=== PATIENT | female | born 1990 | race Caucasian/White ===

== ENCOUNTER 2021-04-24 03:12 | Outpatient (CLI) | payer BC, SELFPAY ==
[2021-04-25 08:05] LABS: COVID-19 RT-PCR UVMMC Result Positive (Negative)
== END 2021-04-24 03:13 | disposition home or self-care (01) ==
LOC: LBO 03:12
PROVIDERS: PCP Nurse Practitioner Adult Health; Visit Provider Nurse Practitioner Family
DX: Z20.822 Contact with and (suspected) exposure to COVID-19 (principal)
CPT/HCPCS: U0003

== ENCOUNTER 2021-04-29 03:05 | Outpatient (CLI) | payer BC, SELFPAY ==
[2021-04-30 01:23] LABS: COVID-19 RT-PCR UVMMC Result Negative (Negative)
== END 2021-04-29 03:06 | disposition home or self-care (01) ==
PROVIDERS: PCP Nurse Practitioner Adult Health; Visit Provider Nurse Practitioner Family
DX: Z20.822 Contact with and (suspected) exposure to COVID-19 (principal)
CPT/HCPCS: U0003